=== PATIENT | female | born 1940 | race Caucasian/White ===

== ENCOUNTER 2024-11-20 11:31 | Emergency (ER) | payer OTHER, SELFPAY ==
[2024-11-20 11:41] VITALS: BP 127/69; PULSE 74; TEMP 36.8; O2SAT 95; BMI 38.0
[2024-11-20 12:22] LABS: Basophils Percent Auto 0.2 % (0.2-2.0); Eosinophils Absolute Auto 0.1 10^3/uL (0.0-0.7); Eosinophils Percent Auto 2.9 % (0.9-7.0); Hematocrit 35.6 % (36.0-48.0); Hemoglobin 11.9 g/dL (12.0-16.0); Immature Granulocytes Abs Auto 0.02 10^3/uL (0.00-0.03); Immature Granulocytes Pct Auto 0.4 % (0.0-0.5); Lymphocytes Absolute Auto 1.2 10^3/uL (1.2-3.8); Lymphocytes Percent Auto 24.9 % (20.5-60.0); Mean Corpuscular HGB Conc 33.4 g/dL (29.9-35.2); Mean Corpuscular Hemoglobin 34.2 pg (26.7-34.0); Mean Corpuscular Volume 102.3 fL (81.0-99.0); Mean Platelet Volume 10.5 fL (9.5-13.5); Monocytes Absolute Auto 0.6 10^3/uL (0.3-0.8); Monocytes Percent Auto 12.7 % (1.7-12.0); Neutrophils Absolute Auto 2.9 10^3/uL (1.4-6.5); Neutrophils Percent Auto 58.9 % (43.0-75.0); Platelet Count 236 10^3/uL (150-450); Red Blood Count 3.48 10^6/uL (4.20-5.40); Red Cell Distribution Width 17.6 % (11.0-15.0); White Blood Count 4.9 10^3/uL (4.0-11.0)
[2024-11-20] MEDS: 0.9 % SODIUM CHLORIDE 1,000 ML 999 ML IV (12:34)
[2024-11-20] MEDS: HYOSCYAMINE SULFATE 0.125 MG TAB.SUBL SL (12:36)
[2024-11-20 12:37] LABS: Alanine Aminotransferase 17 U/L (14-59); Albumin Globulin Ratio 1.1; Albumin Level 3.3 g/dL (3.4-5.0); Alkaline Phosphatase 84 U/L (46-116); Anion Gap 12.5; Aspartate Amino Transferase 13 U/L (15-37); BUN Creatinine Ratio 16.7; Bilirubin Total 0.6 mg/dL (0.2-1.0); Calcium 8.7 mg/dL (8.5-10.1); Carbon Dioxide 27.6 mmol/L (21.0-32.0); Chloride 104 mmol/L (98-107); Estimated GFR (African America >60 (>=60 mL/min/1.73m^2); Estimated GFR (Non-African Ame >60 (>=60 mL/min/1.73m^2); Globulin 3.1 g/dL; Glucose 100 mg/dL (74-106); Potassium 3.1 mmol/L (3.5-5.1); Sodium 141 mmol/L (136-145); Total Protein 6.4 g/dL (6.4-8.2)
[2024-11-20] MEDS: POTASSIUM CHLORIDE 10 MEQ ER TABLET 40 MEQ PO (13:49)
[2024-11-20 14:24] VITALS: O2SAT 87
[2024-11-20 14:28] VITALS: BP 120/77; O2SAT 97
[2024-11-20 14:30] VITALS: O2SAT 97
--- NOTE | 2024-11-20 15:27 | ED_ITS ---
HPI - Abdominal Pain General Chief Complaint: Abdominal Pain Stated Complaint: PAIN ON GI TRACK Time Seen by Provider: 11/20/24 11:44 Source: patient and family Mode of arrival: walk-in Limitations: no limitations History of Present Illness HPI narrative: cc = diarrhea and abdominal pain Patient with IBS presents with abdominal cramping that began on November 11. She developed diarrhea on November 17. She called her primary care provider and was prescribed Lomotil but that made her feel terrible -she had dizziness and felt like it made the GI symptoms worse. No blood in urine or stool. No nausea, vomiting. No recent travel outside the area. No recent antibiotics. No prior history of Crohn's disease or ulcerative colitis. Related Data Previous Rx's ?Medication ?Instructions ?Recorded hyoscyamine sulfate 0.125 mg 0.125 mg PO Q6H PRN abdominal pain 11/20/24 sublingual tablet (Levsin/SL) #20 tabs Allergies Allergy/AdvReac Type Severity Reaction Status Date / Time No Known Drug Allergies Allergy Verified 11/20/24 11:49 PFSH PFSH Social History Little interest or pleasure in doing things: not at all Feeling down, depressed, or hopeless: not at all Exam Narrative Exam Narrative: Nurses notes and vital signs reviewed and patient is not hypoxic. afebrile General: Well-appearing and in no apparent distress. Skin: Warm, dry, no pallor noted. No rash. Head: Normocephalic, atraumatic. Neck: Supple, non-tender. Eye: Pupils are equal, round and EOMI. No scleral icterus. Ears, Nose, Mouth, and Throat: Oral mucosa is moist Cardiovascular: Regular Rate and Rhythm without murmur, gallop or rub. Respiratory: No accessory muscle use or respiratory distress. Lungs are clear to auscultation, no wheezing, rales or rhonchi Musculoskeletal: normal ROM GI: Abdomen is soft, non-distended. Normal bowel sounds. No solid or pulsatile masses appreciated. Mild mid abdominal tenderness to palpation. No rebound, guarding, or rigidity noted. Neurological: A&O x4. No cranial nerve dysfunction observed. No truncal ataxia. Moves all extremities. Sensation intact. Psychiatric: Cooperative and interactive. Normal mood and affect. Constitutional Vital Signs, click to edit/add: Last Vital Signs Temp 98.2 F 11/20/24 11:41 Pulse 74 11/20/24 11:41 Resp 18 11/20/24 11:41 BP 120/77 11/20/24 14:28 Pulse Ox 97 11/20/24 14:30 O2 Del Method Room Air 11/20/24 11:41 Course Vital Signs Vital signs: Vital Signs Temperature 98.2 F 11/20/24 11:41 Pulse Rate 74 11/20/24 11:41 Respiratory Rate 18 11/20/24 11:41 Blood Pressure 127/69 11/20/24 11:41 Pulse Oximetry 95 11/20/24 11:41 Oxygen Delivery Method Room Air 11/20/24 11:41 Temperature 98.2 F 11/20/24 11:41 Pulse Rate 74 11/20/24 11:41 Respiratory Rate 18 11/20/24 11:41 Blood Pressure 120/77 11/20/24 14:28 Pulse Oximetry 97 11/20/24 14:30 Oxygen Delivery Method Room Air 11/20/24 11:41 MDM - Abdominal Pain MDM Narrative Medical decision making narrative: The patient was given oral dissolvable Levsin for her abdominal cramping while we waited test results. Peripheral IV was established for the patient to receive CT scanning with IV contrast. CT scan of the abdomen and pelvis did not reveal any acute GI processes that are worrisome. She does have moderately severe compression deformity of L3 vertebra that appears subacute to chronic in timing. No bowel obstruction, colitis, adenopathy, free air or free fluid, pancreatic abnormality or gallbladder enlargement is noted. She was incidentally found to have large gallstones in the fundus. Blood tests were remarkable for mildly decreased potassium at 3.1 -she was given potassium orally for repletion. Lab Data Attestation: I reviewed the patient's lab results. Labs: Lab Results 11/20/24 Range/Units 12:13 WBC 4.9 (4.0-11.0) 10^3/uL RBC 3.48 L (4.20-5.40) 10^6/uL Hgb 11.9 L (12.0-16.0) g/dL Hct 35.6 L (36.0-48.0) % MCV 102.3 H (81.0-99.0) fL MCH 34.2 H (26.7-34.0) pg MCHC 33.4 (29.9-35.2) g/dL RDW 17.6 H (11.0-15.0) % Plt Count 236 (150-450) 10^3/uL MPV 10.5 (9.5-13.5) fL Neut % (Auto) 58.9 (43.0-75.0) % Lymph % (Auto) 24.9 (20.5-60.0) % Benson % (Auto) 12.7 H (1.7-12.0) % Eos % (Auto) 2.9 (0.9-7.0) % Baso % (Auto) 0.2 (0.2-2.0) % Neut # (Auto) 2.9 (1.4-6.5) 10^3/uL Lymph # (Auto) 1.2 (1.2-3.8) 10^3/uL Benson # (Auto) 0.6 (0.3-0.8) 10^3/uL Eos # (Auto) 0.1 (0.0-0.7) 10^3/uL Baso # (Auto) 0.0 (0.0-0.1) 10^3/uL Abs Immat Gran (auto) 0.02 (0.00-0.03) 10^3/uL Imm/Tot Granulo (auto) 0.4 (0.0-0.5) % Sodium 141 (136-145) mmol/L Potassium 3.1 L (3.5-5.1) mmol/L Chloride 104 (98-107) mmol/L Carbon Dioxide 27.6 (21.0-32.0) mmol/L Anion Gap 12.5 BUN 12.0 (7.0-18.0) mg/dL Creatinine 0.72 (0.55-1.02) mg/dL Est GFR ( Amer) >60 (>=60 mL/min/1.73m^2) Est GFR (Non-Af Amer) >60 (>=60 mL/min/1.73m^2) BUN/Creatinine Ratio 16.7 Glucose 100 (74-106) mg/dL Calcium 8.7 (8.5-10.1) mg/dL Total Bilirubin 0.6 (0.2-1.0) mg/dL AST 13 L (15-37) U/L ALT 17 (14-59) U/L Alkaline Phosphatase 84 (46-116) U/L Total Protein 6.4 (6.4-8.2) g/dL Albumin 3.3 L (3.4-5.0) g/dL Globulin 3.1 g/dL Albumin/Globulin Ratio 1.1 Lipase 30.0 (16.0-77.0) U/L Imaging Data CT scan - abdomen: Radiologist's impression: No acute process in the abdomen or pelvis. Abnormal L3 vertebra. Discharge Plan Discharge Chief Complaint: Abdominal Pain Clinical Impression: IBS (irritable bowel syndrome), Enteritis, Acute hypokalemia Patient Disposition: Home, Self-Care Time of Disposition Decision: 15:26 Prescriptions / Home Meds: New hyoscyamine sulfate [Levsin/SL] 0.125 mg tablet, sublingual 0.125 mg PO Q6H PRN (Reason: abdominal pain) Qty: 20 0RF Print Language: Wallisian Instructions: Irritable Bowel Syndrome (ED), Hypokalemia (ED), Acute Diarrhea (ED) Referrals: Physician,Non-Staff, MD [Primary Care Provider] - 1 week
== END 2024-11-20 15:38 | disposition home or self-care (01) ==
PROVIDERS: Emergency Provider Emergency Medicine
DX: K58.9 Irritable bowel syndrome, unspecified (principal); E87.6 Hypokalemia; R10.9 Unspecified abdominal pain
CPT/HCPCS: 36415; 74177; 80053; 83690; 85025; 96360; 96361; 99285; Q9967